=== PATIENT | male | born 1960 | race Caucasian/White ===

== ENCOUNTER 2018-08-17 20:17 | Emergency (ER) | payer OTHER ==
[2018-08-17 20:25] VITALS: BP 165/97
--- NOTE | 2018-08-17 20:45 | EDPHY ---
H & P Time Seen by Provider: 08/17/18 20:33 HPI/ROS: CHIEF COMPLAINT: Forehead laceration HISTORY OF PRESENT ILLNESS: 58-year-old male generally healthy no anticoagulant use complaining of forehead laceration after he sustained a mechanical fall impacting his forehead against exercise bicycle. No loss of consciousness. No amnesia. No alcohol or drug use. He went to an urgent care , had the wound cleansed and the provider there recommended he have plastic surgery closure. The patient's has previously been seen by Dr. Caesar Bonilla and they request Dr. Caesar Bonilla for plastic surgery consultation PRIMARY CARE PROVIDER: REVIEW OF SYSTEMS: 10 systems reviewed and negative with the exception of the elements mentioned in the history of present illness PAST MEDICAL/SURGICAL HISTORY: Metastatic melanoma history SOCIAL HISTORY: denies alcohol use at time of incident PHYSICAL EXAM 1) GENERAL: Well-developed, well-nourished, alert and oriented. Appears to be in no acute distress. Answering questions appropriately. 2) HEAD: Normocephalic, 4 cm irregular glabella laceration 3) HEENT: Pupils equal, round, reactive to light bilaterally. Negative Horners. Nasopharynx, oropharynx, clear. No deformity or angulation of nose. No septal hematoma. No rhinorrhea. No oral trauma. Ears bilaterally with normal tympanic membranes. No hemotympanum. No fluid or blood in the external auditory canal. No raccoon eyes. No Ortiz sign. Teeth are normally aligned with no gross malocclusion, TMJ bilaterally nontender, facial bones nontender including the zygomatic arch, maxilla mandible. 4) NECK: No cervical collar is on. Posterior cervical spine is nontender, no stepoff, no effusion. Full range of motion which does not elicit any midline cervical spine pain, no posterior midline tenderness, no step-off. 5) LUNGS: Clear to auscultation bilaterally, no wheezes, no rhonchi, no retractions. No obvious signs of trauma. No chest wall pain. No flaring, no grunting. Moving symmetrically. No crepitus. 6) HEART: [Regular rate and rhythm, 7) ABDOMEN: No guarding, no rebound, no focal tenderness, no peritoneal signs, no signs of trauma, no ecchymosis 8) MUSCULOSKELETAL: Moving all extremities, no focal areas of tenderness, no obvious trauma. 9) BACK: Patient logrolled while holding inline traction.No midline vertebral tenderness, no fluctuance, no step-off, no obvious trauma, no visual or palpable abnormality. 10) SKIN: No laceration. No abrasion 11) NEURO: Awake, alert, and oriented to person, place and time. Answers questions appropriately. There were no obvious focal neurologic abnormalities. No cerebellar dysfunction. Cranial nerves 2 through to 12 intact. Normal steady gait. Upper and lower extremities bilaterally with strength 5 / 5, reflexes 2+. DIFFERENTIAL DIAGNOSIS: Not necessarily in any particular order, my differential diagnosis includes, but is not limited to, concussion, skull fracture, intraparenchymal contusion, subarachnoid, subdural and epidural hematoma. The patient understands that this diagnosis is provisional and can never be 100% accurate. Smoking Status: Never smoked Constitutional: Initial Vital Signs Temperature (C) 36.7 C 08/17/18 20:19 Heart Rate 65 08/17/18 20:19 Respiratory Rate 16 08/17/18 20:19 Blood Pressure 165/97 H 08/17/18 20:19 O2 Sat (%) 97 08/17/18 20:19 O2 Delivery Mode Room Air Allergies/Adverse Reactions: No Known Allergies Allergy (Unverified 08/17/18 20:25) Home Medications: Medication Instructions Recorded Levothyroxine 08/17/18 Omeprazole 08/17/18 predniSONE 08/17/18 MDM/Departure - MDM ED Course/Re-evaluation: 8:48 p.m.: Consultation with Dr. Caesar Bonilla who offered to perform wound closure at his office at 8:00 a.m. Tomorrow. Discussed this with the patient and his and they would prefer to have Dr. Bonilla perform wound closure tomorrow morning. Wound has therefore been dressed and he will see Dr. Bonilla in the morning. Regarding his head injury, negative [place] head and C-spine decision-making tools. I do not think that imaging definitively indicated. I did discuss my decision-making process and they are in agreement that do not think that imaging is indicated. Nonetheless my usual customary head injury precautions and instructions provided. - Depart Disposition: Home, Routine, Self-Care Clinical Impression: Forehead laceration Condition: Good Instructions: Laceration (ED) Referrals: Dick Bonilla JR, MD [Medical Doctor] - 08/18/18 8:00 am (Dr Bonilla will meet you at his office tomorrow morning at 8 am. )
== END 2018-08-17 21:13 | disposition home or self-care (01) ==
DX: S01.81XA Laceration without foreign body of other part of head, initial encounter (principal); W01.198A Fall on same level from slipping, tripping and stumbling with subsequent striking against other object, initial encounter; Y92.9 Unspecified place or not applicable